=== PATIENT | female | born 2000 | race Caucasian/White ===

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

== ENCOUNTER 2022-05-01 07:32 | Emergency (ER) | payer OTHER, SELFPAY ==
[2022-05-01 07:45] VITALS: BP 125/86; PULSE 91; RESP 16; TEMP 36.6; O2SAT 99; BMI 22.3
[2022-05-01 08:02] VITALS: BP 125/86; PULSE 80; O2SAT 91
[2022-05-01 08:10] LABS: Microscopic, Urine URINE MICROSCOPIC (MICROSCOPIC)
[2022-05-01 08:15] VITALS: BP 109/62; PULSE 83; PULSE 87; RESP 16; O2SAT 100; O2SAT 99
[2022-05-01 08:17] LABS: Appearance,Urine CLEAR (Clear); Bilirubin,Urine Negative (Negative); Blood, Urine TRACE-I (Negative); Color,Urine YELLOW (Yellow); Glucose,Urine (UA) Negative (Negative); Ketones,Urine Negative (Negative); Leukocyte Esterase,Urine Negative (Negative); Nitrate,Urine Negative (Negative); PH,Urine 5.5 (5.0-8.5); Protein,Urine Negative (Negative); Specific Gravity, Urine 1.025 (1.005-1.030); Urobilinogen,Urine 0.2 EU/dl (0.2)
--- NOTE | 2022-05-01 08:24 | HMH.EDGENADL ---
Discharge Plan Disposition Patient Disposition: Home, Self-Care Condition: Good Prescriptions Prescriptions: No Action Nexplanon 68 mg implant 68 mg subdermal . Referrals Follow up/Referrals: Avel Matthews MD [Primary Care Provider] - See instructions Activity Restrictions/Add. Instructions Additional Instructions/Restrictions: Innv-[id number] ibuprofen 600 mg every 6-8 hours for pain. Follow-up with primary care provider, Dr. Matthews and with [employer], Dr. Cherry. Clinical Impressions Clinical Impression: Arthralgia, Back pain, Arm pain, left Stand Alone Forms Stand Alone Forms: Work/School Release Discharge ED Provider: Vamshi Street General Adult HPI General Chief complaint: Weakness Stated complaint: back pain, hip pain, body aches Time Seen by Provider: 05/01/22 08:15 Mode of Arrival: Ambulatory Source of Information: Patient and Relative Limitations: No Limitations Description of Symptoms (Recalled from ER Triage Doc. by RN): pt comes in with c/o body aches, muscle aches ongoing for 3 weeks. the past few days pt has had pain in left arm that extends from forarm to shoulder, back and hip. pt has nexplanon implant in left arm. placed dec 24 2021. pt has appt with obgyn (dr cherry) on 05/13/22. History of Present Illness HPI narrative: Patient has a 3-week history of body aches. She states that initially she was having pain in all of her muscles in all of her joints, but now she has pain in her mid back, both hips, and left arm. 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 Certain positions make her pain is worse. She says she is not able to sit for very long. Back pain increases with bending, twisting, turning, and she says when she takes it deep breath it sends a pain down my spine . No injury. No treatment prior to arrival. No fever. No vomiting, diarrhea, urinary symptoms. No URI symptoms. Her Nexplanon was inserted 12/24/[address] Cherry and she has a follow-up appointment on 05/13/2022. Related Data Home Medications Medication Instructions Recorded Confirmed etonogestrel 68 mg subdermal 68 mg subdermal . control 12/24/21 05/01/22 implant (Nexplanon) Allergies Allergy/AdvReac Type Severity Reaction Status Date / Time Penicillins [PENICILLINS] Allergy Unknown Verified 05/01/22 07:51 [facility] Disclaimer: The information contained in this section may have been updated after the patient was seen, as this information can be updated by other users. Medical History Headache Sleeping difficulties Social History Smoking Status: Current every day smoker alcohol intake: never substance use type: denies use current occupational status: unemployed Travel in the last 8 weeks: None household members: significant other housing: house ROS Obtained: Yes Systems reviewed as appropriate & no additional complaints except as documented Constitutional Constitutional: Reports body ache, Denies fever(s), Denies headache(s) and Denies weakness ENT Ears, Nose, Mouth, and Throat: Denies headache(s), Denies nasal discharge and Denies sore throat Cardiovascular Cardiovascular: Denies chest pain Respiratory Respiratory: Denies shortness of breath and Denies cough Gastrointestinal Gastrointestingal: Denies abdominal pain, constipation, diarrhea or vomiting Genitourinary Female Genitourinary: Denies difficulty voiding, Denies dysuria and Denies flank pain Musculoskeletal Musculoskeletal: Denies numbness Neurologic Neurologic: Denies headache(s), Denies numbness and Denies weakness Physical Exam General General appearance: alert and in no apparent distress Head Head exam: atraumatic and normocephalic Eye Eye exam: Present normal appearance and EOMI ENT ENT exam: Present mucous membranes moist N
[2022-05-01 08:26] LABS: Basophils # 0.1 K/mm3 (0-0.2); Eosinophils # 0.3 K/mm3 (0.0-0.4); Eosinophils % 4.2 % (0.1-12.0); Hematocrit 33.1 % (37.0-47.0); Lymphocytes # 2.1 K/mm3 (0.7-4.5); Lymphocytes % 35.1 % (10-50); Mean Corpuscular HGB Conc 33.3 g/dL (31.8-35.4); Mean Corpuscular Hemoglobin 26.6 pg (27.0-31.2); Mean Corpuscular Volume 79.6 fl (81-99); Mean Platelet Volume 7.6 fl (7.4-10.4); Monocytes # 0.4 K/mm3 (0.1-1.0); Monocytes % 5.9 % (1.7-9.3); Neutrophils # 3.2 K/mm3 (1.8-7.8); Neutrophils % 53.9 % (37.0-80.0); Platelet Count 420 K/mm3 (142-424); Red Blood Count 4.16 M/mm3 (4.20-5.40); Red Cell Distribution Width 17.3 % (11.5-17.5); White Blood Count 5.9 K/mm3 (4.5-13.0)
[2022-05-01 08:27] LABS: Chloride 107 mmol/L (98-107)
[2022-05-01 08:28] LABS: Sodium 139 mmol/L (136-145)
[2022-05-01 08:28] LABS: Bacteria,Urine Trace /lpf; RBC,Urine Occasional #/hpf (0-3); Urine Pregnancy, HCG Qual. Negative (Negative)
[2022-05-01 08:30] VITALS: BP 117/70; O2SAT 98
[2022-05-01 08:30] LABS: Alanine Aminotransferase 19 U/L (12-78); Aspartate Amino Transferase 22 U/L (14-36); Blood Urea Nitrogen 13 mg/dl (7-17); Creatinine Clearance Estimated 105 mL/min (50-200); Estimated Glomerular Filt Rate 92 ml/min (>60); GFR (African American) 112 ML/MIN (>60)
[2022-05-01 08:31] LABS: Albumin Level 4.2 g/dl (3.5-5.0); Albumin/Globulin Ratio 1.4 (1.1-1.8); Alkaline Phosphatase 60 U/L (38-126); Bilirubin,Total 0.7 mg/dl (0.2-1.3); Calcium 8.6 mg/dl (8.4-10.2); Carbon Dioxide 25 mmol/L (22.0-30.0); Globulin 3.1 g/dL (1.3-3.2); Glucose 103 mg/dl (74-100); Total Protein,Serum 7.3 g/dl (6.3-8.2)
[2022-05-01 08:36] LABS: Creatine Kinase 115 U/L (30-135)
[2022-05-01 08:42] LABS: C-Reactive Protein 1.6 mg/L (0-4)
[2022-05-01 08:55] LABS: Erythrocyte Sedimentation Rate 20 mm/hr (0-20)
--- NOTE | 2022-05-01 08:55 | PC.NURSE ---
got pt a warm blanket
[2022-05-01 08:57] VITALS: BP 121/86; PULSE 73; O2SAT 100
[2022-05-01 09:00] VITALS: BP 121/86; PULSE 75; RESP 16; TEMP 36.7
== END 2022-05-01 09:05 | disposition home or self-care (01) ==
PROVIDERS: Emergency Provider Emergency Medicine; PCP Internal Medicine Adolescent Medicine
DX: M79.602 Pain in left arm (principal); M79.642 Pain in left hand; M54.6 Pain in thoracic spine; F17.210 Nicotine dependence, cigarettes, uncomplicated
CPT/HCPCS: 80053; 81001; 81025; 82550; 85025; 85651; 86140; 96374; 99285

== ENCOUNTER → 2022-09-02 12:31 | Outpatient (CLI) | payer OTHER, SELFPAY ==
[2022-09-02 13:56] LABS: HCG,Quantitative 1687 mIU/ml (0-5.42)
== END ==
PROVIDERS: PCP Internal Medicine Adolescent Medicine; Visit Provider Obstetrics & Gynecology
DX: Z34.90 Encounter for supervision of normal pregnancy, unspecified, unspecified trimester (principal); Z3A.01 Less than 8 weeks gestation of pregnancy
CPT/HCPCS: 36415; 84144; 84702

== ENCOUNTER → 2022-10-03 11:52 | Outpatient (CLI) | payer OTHER, SELFPAY ==
[2022-10-03 12:27] LABS: Basophils % 0.2 % (0.1-2.0); Eosinophils # 0.2 K/mm3 (0.0-0.4); Eosinophils % 2.6 % (0.1-12.0); Hematocrit 35.3 % (37.0-47.0); Hemoglobin 11.5 g/dL (12.2-16.2); Lymphocytes # 1.8 K/mm3 (0.7-4.5); Lymphocytes % 30.8 % (10-50); Mean Corpuscular HGB Conc 32.5 g/dL (31.8-35.4); Mean Corpuscular Hemoglobin 27.9 pg (27.0-31.2); Mean Corpuscular Volume 85.8 fl (81-99); Mean Platelet Volume 7.4 fl (7.4-10.4); Monocytes # 0.3 K/mm3 (0.1-1.0); Monocytes % 5.8 % (1.7-9.3); Neutrophils # 3.5 K/mm3 (1.8-7.8); Neutrophils % 60.7 % (37.0-80.0); Platelet Count 360 K/mm3 (142-424); Red Blood Count 4.12 M/mm3 (4.20-5.40); Red Cell Distribution Width 15.4 % (11.5-17.5); White Blood Count 5.7 K/mm3 (4.5-13.0)
[2022-10-04 10:35] LABS: Rapid Plasma Reagin Ab Titer Non Reactive (NonRea<1:1); Rubella Antibodies, IgG 1.59 index (Immune >0.99)
[2022-10-05 22:14] LABS: Neisseria gonorrhoeae, NAA Negative (Negative)
[2022-11-02 23:34] LABS: HIV Screen 4th Generation wRfx Non Reactive; Hepatitis B Surface Antigen Negative; Hepatitis C Antibody Non Reactive
== END ==
PROVIDERS: PCP Internal Medicine Adolescent Medicine; Visit Provider Obstetrics & Gynecology
DX: Z34.91 Encounter for supervision of normal pregnancy, unspecified, first trimester (principal); Z3A.09 9 weeks gestation of pregnancy
CPT/HCPCS: 36415; 85025; 86593; 86703; 86762; 86850; 87086; 87340; 87380; 87491; 87591; G0432

== ENCOUNTER 2022-10-07 17:42 | Emergency (ER) | payer OTHER, SELFPAY ==
[2022-10-07] VITALS (7 sets, daily range): BP systolic 117–134; BP diastolic 70–83; PULSE 80–95; RESP 16; TEMP 36.7; O2SAT 99–100; BMI 23.1
--- NOTE | 2022-10-07 19:03 | HMH.EDGENADL ---
Discharge Plan Disposition Patient Disposition: Home, Self-Care Condition: Good Prescriptions Prescriptions: No Action Gummies 400 mcg-35 mg- 25 mg-5 mg tablet,chewable PO Referrals Follow up/Referrals: Avel Matthews MD [Primary Care Provider] - See instructions Clinical Impressions Clinical Impression: Migraine Discharge ED Provider: Logan Angel General Adult HPI General Chief complaint: Headache Stated complaint: HERNÁNDEZ, earache, cramps-10 wks preg Time Seen by Provider: 10/07/22 18:00 Mode of Arrival: Ambulatory Limitations: No Limitations Description of Symptoms (Recalled from ER Triage Doc. by RN): PT C/O MIGRAINE X 1 WEEK, LEFT EAR PAIN X 3 DAYS AND LEFT JAW PAIN. PT IS 9 6/7 WEEKS GESTATION WITH C/O LOWER ABDOMINAL CRAMPING THAT STARTED THIS AM. DENIES VAGINAL BLEEDING OR LEAKING OF FLUID History of Present Illness HPI narrative: Is a 22-year-old female who is currently 9 weeks presenting with headache. Patient states that headache started about 1 week prior to arrival. Is similar to her migraine symptoms, but more intense. Is moderate in intensity, does not radiate, left-sided. Not associated with neurologic deficits. Has not taken any medications to try to help given that she is . Denies any head trauma, or any other symptoms at this time. Related Data Home Medications Medication Instructions Recorded Confirmed PNV 153-FA 400 mcg-om3 35 mg-dha tab PO 10/03/22 10/03/22 25 mg-epa 5 mg-fish oil chew tablet ( Gummies) Allergies Allergy/AdvReac Type Severity Reaction Status Date / Time Penicillins [PENICILLINS] Allergy Unknown Verified 10/03/22 11:08 [facility] Disclaimer: The information contained in this section may have been updated after the patient was seen, as this information can be updated by other users. Medical History (Updated 10/07/22 @ 19:06 by Logan Angel MD) Headache History of delivery Sleeping difficulties Surgical History Hx of tonsillectomy Hx of wisdom tooth extraction Family History Other Alcoholism Anemia Asthma Coronary artery disease Diabetes FHx: mental illness Heart attack Hypertension Kidney disease Substance abuse Social History (Updated 10/07/22 @ 17:57 by Aaliyah Castillo RN) Smoking Status: Current every day smoker alcohol intake: never substance use type: denies use current occupational status: unemployed Travel in the last 8 weeks: None household members: significant other housing: house ROS Obtained: Yes All systems reviewed & no additional complaints except as documented Physical Exam General General appearance: alert and in no apparent distress Head Head exam: atraumatic, normocephalic and normal inspection Eye Eye exam: Present normal appearance, PERRL and EOMI ENT ENT exam: Present normal exam, normal oropharynx, mucous membranes moist, TM's normal bilaterally and normal external ear exam Neck Neck exam: Present normal inspection, full ROM and trachea midline; Absent meningismus or lymphadenopathy Chest Chest inspection: Present normal inspection and symmetric chest wall rise; Absent tenderness Respiratory Respiratory exam: Present normal lung sounds bilaterally; Absent respiratory distress Cardiovascular Cardiovascular exam: Present regular rate and normal rhythm; Absent JVD Abdominal Exam Abdominal exam: Present soft and normal bowel sounds; Absent distention, tenderness or guarding Extremities Exam Extremities exam: Present normal inspection, full ROM and normal capillary refill; Absent calf tenderness Back Exam Back exam: Present normal inspection; Absent tenderness Neurological Exam Neurological exam: Present alert and oriented X3 Psychiatric Psychiatric exam: Present normal affect and normal mood Skin Skin exam: Present warm, d
--- NOTE | 2022-10-07 19:04 | PC.NURSE ---
PT STATES SHE FEELING BETTER NEEDS TO BE HOME BY 19:15 SO HER COULD GO WORK AND SHE HAD NO ONE TO WATCH HER KIDS , RELAYED MESSAGE TO ER MD LARSEN
== END 2022-10-07 19:10 | disposition home or self-care (01) ==
PROVIDERS: Emergency Provider Emergency Medicine; PCP Internal Medicine Adolescent Medicine
DX: O26.891 Other specified pregnancy related conditions, first trimester (principal); G43.909 Migraine, unspecified, not intractable, without status migrainosus; Z3A.10 10 weeks gestation of pregnancy; O99.331 Smoking (tobacco) complicating pregnancy, first trimester; F17.210 Nicotine dependence, cigarettes, uncomplicated
CPT/HCPCS: 96361; 96374; 99284

== ENCOUNTER 2022-11-06 13:36 | Emergency (ER) | payer OTHER, SELFPAY ==
[2022-11-06 13:55] VITALS: BP 126/81; PULSE 82; RESP 18; TEMP 36.8; O2SAT 98; BMI 21.9
--- NOTE | 2022-11-06 14:33 | EXP.UTC ---
Discharge Plan Disposition Patient Disposition: Home, Self-Care Condition: Good Prescriptions Prescriptions: New cephalexin 500 mg capsule 500 mg PO Q8H 7 Days Qty: 21 0RF No Action Gummies 400 mcg-35 mg- 25 mg-5 mg tablet,chewable PO Referrals Follow up/Referrals: Avel Matthews MD [Primary Care Provider] - See instructions Activity Restrictions/Add. Instructions Additional Instructions/Restrictions: Use dental balls as prescribed Take medication as prescribed Follow up with Dentist call office tomorrow for appointment Return if needed Straight to ER if any life threatening symptoms Clinical Impressions Clinical Impression: Dental infection Instructions Patient Instructions: Tooth Abscess Discharge ED Provider: Michelle Smith [facility] General Stated complaint: Tooth pain Mode of Arrival: Ambulatory Source of Information: Patient and Parent(s) Limitations: No Limitations Time Seen by Provider: 11/06/22 14:33 Description of Symptoms (Recalled from Triage Doc. by RN): PATIENT C/O TOOTHACHE TO TOP LEFT SIDE X 4 DAYS HEENT Symptoms (Recalled from RN notes): Yes Resp Symptoms (Recalled from RN notes): No Skin Symptoms (Recalled from RN notes): No MS Symptoms (Recalled from RN notes): No Functional Status (Recalled from RN notes): WNL History of Present Illness Provider Complaint: Patient states that she has a broken tooth on her left upper back tooth States that for the last 4 days she has been having swelling and pain in her left jaw area and has tried several over the counter things to help with the dental pain but nothing has helped States that she is 12wks OB Related Data Home Medications Medication Instructions Recorded Confirmed PNV 153-FA 400 mcg-om3 35 mg-dha tab PO 10/03/22 10/24/22 25 mg-epa 5 mg-fish oil chew tablet ( Gummies) Previous Rx's Medication Instructions Recorded cephalexin 500 mg capsule 500 mg PO Q8H 7 days #21 caps 11/06/22 Allergies Allergy/AdvReac Type Severity Reaction Status Date / Time Penicillins [PENICILLINS] Allergy Unknown Verified 10/24/22 15:34 Worker's Comp Is this a Worker's Comp case?: No [facility] Disclaimer: The information contained in this section may have been updated after the patient was seen, as this information can be updated by other users. Medical History Headache History of delivery 35 weeks x 2 Sleeping difficulties Surgical History Hx of tonsillectomy Hx of wisdom tooth extraction Family History Other Alcoholism Anemia Asthma Coronary artery disease Diabetes FHx: mental illness Heart attack Hypertension Kidney disease Substance abuse Social History Smoking Status: Current every day smoker alcohol intake: never substance use type: denies use current occupational status: unemployed Travel in the last 8 weeks: None household members: significant other housing: house ROS Obtained: Yes All systems reviewed & no additional complaints except as documented and Yes Systems reviewed as appropriate & no additional complaints except as documented ENT Ears, Nose, Mouth, and Throat: Reports system reviewed and no additional complaints, except as documented, Reports as per HPI and Reports dental pain Cardiovascular Cardiovascular: Reports system reviewed and no additional complaints, except as documented and Reports as per HPI Respiratory Respiratory: Reports system reviewed and no additional complaints, except as documented and Reports as per HPI Gastrointestinal Gastrointestingal: Reports system reviewed and no additional complaints, except as documented and as per HPI Musculoskeletal Musculoskeletal: Reports system reviewed and no additional complain
[2022-11-06 14:46] VITALS: BP 126/81; PULSE 82; RESP 18; TEMP 36.8; O2SAT 98
== END 2022-11-06 14:48 | disposition home or self-care (01) ==
PROVIDERS: Emergency Provider Nurse Practitioner; PCP Internal Medicine Adolescent Medicine
DX: O26.891 Other specified pregnancy related conditions, first trimester (principal); K04.7 Periapical abscess without sinus; Z3A.12 12 weeks gestation of pregnancy; F17.210 Nicotine dependence, cigarettes, uncomplicated; O99.331 Smoking (tobacco) complicating pregnancy, first trimester
CPT/HCPCS: 99212; 99214; G0463

== ENCOUNTER 2022-11-27 13:26 | Emergency (ER) | payer OTHER, SELFPAY ==
--- NOTE | 2022-11-27 13:36 | EXP.UTC ---
Discharge Plan Disposition Patient Disposition: Home, Self-Care Condition: Good Prescriptions Prescriptions: New cephalexin 500 mg capsule 500 mg PO QID Qty: 40 0RF No Action Gummies 400 mcg-35 mg- 25 mg-5 mg tablet,chewable PO acetaminophen-codeine 300-30 mg tablet 1 tab PO Q6H PRN (Reason: pain) Qty: 14 0RF cephalexin 500 mg capsule 500 mg PO Q8H 7 Days Qty: 21 0RF Referrals Follow up/Referrals: Avel Matthews MD [Primary Care Provider] - See instructions Activity Restrictions/Add. Instructions Additional Instructions/Restrictions: Continue the tylenol #3 that were prescribed by your dentist. Take the cephalexin as directed. Follow up with your regular doctor. Follow up with your dentist. Call them in the morning to let them know what's going on with you. GO TO THE ER FOR ANY WORSENING SYMPTOMS Clinical Impressions Clinical Impression: Pain, dental Instructions Patient Instructions: DI for Dental Pain Discharge ED Provider: Manuel Daniel [facility] General Stated complaint: DENTAL PAIN Time Seen by Provider: 11/27/22 13:36 History of Present Illness Provider Complaint: She states that she has is having right dental pain. She had a tooth pulled in her right lower jaw 3 days ago. She is taking tylenol #3 and she states this is not relieving her pain. Related Data Home Medications Medication Instructions Recorded Confirmed PNV 153-FA 400 mcg-om3 35 mg-dha tab PO 10/03/22 10/24/22 25 mg-epa 5 mg-fish oil chew tablet ( Gummies) Previous Rx's Medication Instructions Recorded cephalexin 500 mg capsule 500 mg PO Q8H 7 days #21 caps 11/06/22 acetaminophen 300 mg-codeine 30 mg 1 tab PO Q6H PRN pain #14 tabs 11/07/22 tablet cephalexin 500 mg capsule 500 mg PO QID #40 caps 11/27/22 Allergies Allergy/AdvReac Type Severity Reaction Status Date / Time Penicillins [PENICILLINS] Allergy Unknown Verified 10/24/22 15:34 [facility] Disclaimer: The information contained in this section may have been updated after the patient was seen, as this information can be updated by other users. Medical History Headache History of delivery 35 weeks x 2 Sleeping difficulties Surgical History Hx of tonsillectomy Hx of wisdom tooth extraction Family History Other Alcoholism Anemia Asthma Coronary artery disease Diabetes FHx: mental illness Heart attack Hypertension Kidney disease Substance abuse Social History Smoking Status: Current every day smoker alcohol intake: never substance use type: denies use current occupational status: unemployed Travel in the last 8 weeks: None household members: significant other housing: house ROS Obtained: Yes All systems reviewed & no additional complaints except as documented Constitutional Constitutional: Denies chills and Denies fever(s) Eyes Eyes: Denies eye discharge ENT Ears, Nose, Mouth, and Throat: Reports as per HPI, Denies dizziness, Denies otalgia and Denies sore throat Cardiovascular Cardiovascular: Denies chest pain Respiratory Respiratory: Denies shortness of breath, Denies chest congestion, Denies cough, Denies stridor and Denies wheezing Gastrointestinal Gastrointestingal: Denies nausea or vomiting Musculoskeletal Musculoskeletal: Reports system reviewed and no additional complaints, except as documented and Denies arthralgias Integumentary/Breasts Skin/Breast: Denies rash Neurologic Neurologic: Denies dizziness and Denies paresthesias Allergic/Immunologic Allergic/Immunologic: Denies wheezing Physical Exam General General appearance: alert and in no apparent distress Head Head exam: atraumatic, normocephalic and normal inspection
[2022-11-27 13:40] VITALS: BP 130/81; PULSE 89; RESP 20; TEMP 36.9; O2SAT 99; BMI 23.1
[2022-11-27 14:05] VITALS: BP 130/81; PULSE 89; RESP 20; TEMP 36.9; O2SAT 99
== END 2022-11-27 14:07 | disposition home or self-care (01) ==
PROVIDERS: Emergency Provider Nurse Practitioner Family; PCP Internal Medicine Adolescent Medicine
DX: K08.89 Other specified disorders of teeth and supporting structures (principal); F17.210 Nicotine dependence, cigarettes, uncomplicated
CPT/HCPCS: 99212; 99214; G0463

== ENCOUNTER → 2022-12-16 13:03 | Outpatient (CLI) | payer OTHER, SELFPAY ==
--- NOTE | 2022-12-16 13:06 | US_ITS ---
PROCEDURE: US OB /MATERNAL DETAIL CLINICAL INDICATION: OB complete COMPARISON: FINDINGS: Transabdominal sonographic images of the pelvis were obtained. From her established due date she is 20 weeks 0 days. Single viable intrauterine gestation. Cephalic position. Placenta: Posteriorplacenta grade 1. There is average amount fluid. The cervix appears satisfactory. Closed and measuring 2.6 cm in length. Complete survey performed and was unremarkable on the submitted images as in PACS. No discrete anomalies identified on survey imaging by technologist. Active fetus. Three-vessel cord with satisfactory umbilical cord insertion. 4- chamber heart noted. LVOT, RVOT, aortic arch, aorta appear normal. Survey of brain & ventricles Unremarkable. Choroid plexus, thalamus, cisterna magna, cerebellum appear normal. Face and neck survey unremarkable. Profile, nasion, lips and nose appeared normal. Diaphragm and chest views unremarkable. Abdomen: Both kidneys noted and unremarkable. Stomach, bladder noted and satisfactory. Spine: Survey of the spine satisfactory with no anomalies identified nor imaged. Upper, thoracic and lower spine appear normal. Both arms and legs noted. Amniotic Fluid: Adequate. Measurements: Average ultrasound age 20weeks 1day. Estimated due date by ultrasound age 0105/04/2023. Estimated weight 323g BPD = 20weeks 5days OFD = 20weeks 4days HC = 19weeks 6days AC = 20weeks 0 days FL = 20weeks 0 days Growth Percentile= 42 Heart Rate = 133bpm Cerebellum = 19weeks 2days Humerus = 20weeks 1day HC/AC is 1.18 CI is 0.8 FL/BPD is 0.66 FL/AC is 0.22 IMPRESSION: 1. Viable fetus in the cephalic presentation with a posterior placenta grade 1. 2. Fluid is within normal limits. 3. The anatomical scan appears normal. 4. Size and dates are congruent. Dictated by: Fredis Nelson MD 12/20/2022 08:00 Fredis Nelson MD in OV 12/20/2022 08:00
== END ==
PROVIDERS: PCP Internal Medicine Adolescent Medicine; Visit Provider Nurse Practitioner Obstetrics & Gynecology
DX: Z34.92 Encounter for supervision of normal pregnancy, unspecified, second trimester (principal); Z3A.20 20 weeks gestation of pregnancy
CPT/HCPCS: 76811

== ENCOUNTER 2023-03-11 18:03 | Inpatient (IN) | payer OTHER, SELFPAY ==
[2023-03-11] VITALS (11 sets, daily range): BP systolic 111–144; BP diastolic 60–85; PULSE 99–113; RESP 16–18; TEMP 36.6–36.8; O2SAT 98–100; BMI 26.1; BMI 24.9
[2023-03-11 16:41] LABS: Microscopic, Urine URINE MICROSCOPIC (MICROSCOPIC)
[2023-03-11 16:51] LABS: Appearance,Urine CLEAR (Clear); Bilirubin,Urine Negative (Negative); Blood, Urine Negative (Negative); Color,Urine YELLOW (Yellow); Glucose,Urine (UA) Negative (Negative); Ketones,Urine Negative (Negative); Leukocyte Esterase,Urine 2+ (Negative); Nitrate,Urine Negative (Negative); Protein,Urine Negative (Negative); Urobilinogen,Urine 0.2 EU/dl (0.2)
[2023-03-11 17:01] LABS: Barbiturates Screen,Urine Negative ng/ml (<200); Benzodiazepines Screen,Urine Negative ng/ml (<200)
[2023-03-11 17:02] LABS: Amphetamine/Metha Screen,Urine Negative ng/ml (<1000)
[2023-03-11 17:03] LABS: Bacteria,Urine 1+ /lpf; Cannabinoid Screen,Urine Negative ng/ml (<50); Methadone Screen,Urine Negative ng/ml (<300); Squamous Epithelial Cell,Urine Occasional #/hpf (0-5)
[2023-03-11 17:04] LABS: Cocaine Screen,Urine Negative ng/ml (<300)
[2023-03-11 17:05] LABS: Opiate Screen,Urine Negative ng/ml (<300); Phencyclidine Screen,Urine Negative ng/ml (<25)
--- NOTE | 2023-03-11 17:39 | PC.NURSE ---
Active Medications Lactated Ringer's (Lactated Ringer's 1000 Ml Bag) 1,000 mls @ 999 mls/hr IV .Q1H1M ONE Stop: 03/11/23 18:00 Last Admin: 03/11/23 16:51 Dose: 999 mls/hr Magnesium Sulfate (Magnesium Sulfate 20gm/500ml Premix (Ob Only)) 20 gm in 500 mls @ 50 mls/hr IV .Q10H LUCI Stop: 04/10/23 16:59 Last Admin: 03/11/23 16:52 Dose: 50 mls/hr
--- NOTE | 2023-03-11 17:51 | EXP.HP ---
History of Present Illness *Admission Date: 03/11/23 *Reason for visit:: vaginal pressure *History of present illness: Sahra Matias is a 22yo who is presenting at 32weeks and 1day gestation. There is a discrepancy with her DARÍO. Patient reported an LMP of 08/03/2022 giving her an DARÍO of 05/10/2023. This was reported at 9 weeks gestation. However when I discussed this with the patient today patient states she is unsure of her LMP. If we used her LMP for dating it would give her a gestational age of 31 weeks and 3 days gestation. She had an early ultrasound at 9 weeks and 3 days which gave her an DARÍO of 05/05/2023 giving her a current gestational age of 32 weeks and 1 day gestation. Since the patient is unsure of her last menstrual period we will stick with her Gestational age and DARÍO of 32 weeks 1 day gestation and 05/05/2023 respectively. She receives her care with Dr. Nelson. She has had 3 prior vaginal deliveries. Her has been complicated by 2 previous vaginal deliveries which she delivered at 35 weeks gestation. was also complicated by scant care. She has had 3 visits at 9, 12 and 19 weeks gestation. She denies any history of -induced hypertension or gestational diabetes. Patient reports the only medication she takes is a vitamin. Denies any past medical or surgical history. Reports an allergy to penicillin states that it causes hives. She had her anatomy scan at 20 weeks gestation which revealed a cervical length of 2.6 cm, EFW of 323 g in the 42nd percentile, anatomy was complete. Today Sahra presents secondary to vaginal pain and pressure for the last week and scant contractions for the last 3 to 4 days. Patient reports that the contractions happen 4-5 times in a day and typically at night. They are resolved with increased hydration. States that she knew she was supposed to get steroids given her history of early delivery and that she had missed his OB appointments and wanted to get steroids and just be checked out. Patient desires a bilateral salpingectomy for contraception. OB history: G1: 2018. at 38 weeks gestation. 7 pounds 1 ounce. Male infant. Complicated by hemorrhage G2: 2019. SAB. Expectant management. G3: 2019. SAB. Expectant management. G4: 2021. at 35 weeks gestation. 6 pounds. Male . G5: 2021. at 35 weeks gestation. 5 pounds 4 ounces. Female infant. G6: Current . NIPT revealed a low risk male A positive, antibody negative, rubella immune, hepatitis B negative, hepatitis C negative, RPR negative, HIV negative Patient did not have her 1 hour GTT done Denies history of GBS. [facility] Disclaimer: The information contained in this section may have been updated after the patient was seen, as this information can be updated by other users. Medical History Headache History of delivery 35 weeks x 2 Sleeping difficulties Surgical History Hx of tonsillectomy Hx of wisdom tooth extraction Family History Other Alcoholism Anemia Asthma Coronary artery disease Diabetes FHx: mental illness Heart attack Hypertension Kidney disease Substance abuse Social History Smoking Status: Current every day smoker alcohol intake: never substance use type: denies use current occupational status: unemployed Travel in the last 8 weeks: None household members: significant other housing: house Review of Systems Review of Systems Review of systems (narrative): Review of Systems Constitutional: Denies fever, chills, and sweats Eyes: Denies vision change/ pain Respiratory: Denies cough and shortness of breath Cardiovascular: Denies chest pain and lightheadedness Gastroi
--- NOTE | 2023-03-11 18:20 | US_ITS ---
PROCEDURE INFORMATION: Exam: US , Transvaginal Exam date and time: 03/11/2023 8:15 PM Age: 22 years old Clinical indication: Other: labor; LABS AND CLINICAL REPORTS: Gestational age (Established): 32 w 1 d Estimated due date (Established): 05/05/2023 TECHNIQUE: Imaging protocol: Real-time transvaginal obstetrical ultrasound of the maternal pelvis with image documentation. Transvaginal imaging was used for better evaluation of the fetus, adnexa, and/or cervix. COMPARISON: US OB /MATERNAL DETAIL 12/16/2022 1:08 PM FINDINGS: Gestation: Intrauterine gestation. BIOMETRY: Gestational age (AUA): 32 w 2 d Estimated due date (AUA): 05/04/2023 MATERNAL: Cervix: Cervix measures 3.2-3.7 cm. It is closed . With Valsalva it decreases to 1.86 cm. IMPRESSION: Cervix measures 3.2-3.7 cm. It is closed . With Valsalva it decreases to 1.86 cm. PROCEDURE INFORMATION: Exam: US Biophysical Profile Without Non-Stress Test Exam date and time: 03/11/2023 8:15 PM Age: 22 years old Clinical indication: Other: labor; TECHNIQUE: Imaging protocol: US biophysical profile without non-stress testing. COMPARISON: US OB /MATERNAL DETAIL 12/16/2022 1:08 PM FINDINGS: heart rate: 127 bpm Amniotic fluid index: MARY GRACE is 8.85 cm. Cephalic presentation Normal stomach Normal kidneys Normal four-chamber heart Three-vessel cord BIOPHYSICAL PROFILE: breathing movement (BPP): 2/2 body movement (BPP): 2/2 tone (BPP): :2/2 Amniotic fluid (BPP): :2/2 Biophysical profile score (BPP): 8/8 IMPRESSION: The biophysical profile is 8/8. Two points each for breathing movement; gross body movement; tone; and qualitative amniotic fluid volume
[2023-03-11 21:21] LABS: Magnesium 4.5 mg/dl (1.6-2.3)
[2023-03-12 00:48] VITALS: BP 112/70; PULSE 103; RESP 18; TEMP 36.8; O2SAT 100
[2023-03-12 01:48] VITALS: BP 117/70; PULSE 99; RESP 17; TEMP 36.8; O2SAT 100
[2023-03-12 02:01] VITALS: BP 110/72; PULSE 95; RESP 17; TEMP 36.8; O2SAT 100
--- NOTE | 2023-03-12 02:46 | EXP.DC.SUM ---
General Admission date:: 03/11/23 Discharge date: 03/12/23 HPI HPI HPI: Sahra Matias is a 22yo who is presenting at 32weeks and 1day gestation. There is a discrepancy with her DARÍO. Patient reported an LMP of 08/03/2022 giving her an DARÍO of 05/10/2023. This was reported at 9 weeks gestation. However when I discussed this with the patient today patient states she is unsure of her LMP. If we used her LMP for dating it would give her a gestational age of 31 weeks and 3 days gestation. She had an early ultrasound at 9 weeks and 3 days which gave her an DARÍO of 05/05/2023 giving her a current gestational age of 32 weeks and 1 day gestation. Since the patient is unsure of her last menstrual period we will stick with her Gestational age and DARÍO of 32 weeks 1 day gestation and 05/05/2023 respectively. She receives her care with Dr. Nelson. She has had 3 prior vaginal deliveries. Her has been complicated by 2 previous vaginal deliveries which she delivered at 35 weeks gestation. was also complicated by scant care. She has had 3 visits at 9, 12 and 19 weeks gestation. She denies any history of -induced hypertension or gestational diabetes. Patient reports the only medication she takes is a vitamin. Denies any past medical or surgical history. Reports an allergy to penicillin states that it causes hives. She had her anatomy scan at 20 weeks gestation which revealed a cervical length of 2.6 cm, EFW of 323 g in the 42nd percentile, anatomy was complete. Today Sahra presents secondary to vaginal pain and pressure for the last week and scant contractions for the last 3 to 4 days. Patient reports that the contractions happen 4-5 times in a day and typically at night. They are resolved with increased hydration. States that she knew she was supposed to get steroids given her history of early delivery and that she had missed his OB appointments and wanted to get steroids and just be checked out. Patient desires a bilateral salpingectomy for contraception. OB history: G1: 2018. at 38 weeks gestation. 7 pounds 1 ounce. Male infant. Complicated by hemorrhage G2: 2019. SAB. Expectant management. G3: 2019. SAB. Expectant management. G4: 2020. at 35 weeks gestation. 6 pounds. Male infant. G5: 2021. at 35 weeks gestation. 5 pounds 4 ounces. Female infant. G6: Current . NIPT revealed a low risk male A positive, antibody negative, rubella immune, hepatitis B negative, hepatitis C negative, RPR negative, HIV negative Patient did not have her 1 hour GTT done Denies history of GBS. Hospital Course Hospital Course Hospital Course: Following admission US was obtained at that point her cervix was 3.02 to 3.32cm without funneling, shortening was noted with valsalva. Fetus is cephalic. Estimated weight is 1988 g, 4 pounds 3 ounces, 31st percentile. BPP was 8 out of 8. Of note, on admission anatomy scan was reviewed and cervical length at that time was noted to be 2.6cm in length. Estimated weight 20-week anatomy scan was 323 g, 42nd percentile. Posterior grade 1 placenta. Anatomy scan was complete at that time. After shared decision making we elected to start her on magnesium for neuroprotection and tocolysis for steroid completion as described in the HPI. The first 9 hours she slept and did not feel any contractions at 2am she reported back pain and lower abdominal pain. She had a contraction while the nurse was in the room and her tocometer was adjusted. Contractions were noted q2-4minutes. At this time her cervix was noted to be 3-4cm and I was called for exam. I confirmed the exam and called for transport given her gestational age. Exam Data for Last 24 hours Vital signs and Labs for Last 24 Hours: Temp Pulse Resp BP Pulse Ox O2 Del Method 98.3 F 95 H 17 110/72 100 Room Air 03/12/23 02:01 03/12/23 02:01 03/12/23 02:0
== END 2023-03-12 03:39 | disposition short-term general hospital (02) | DRG 833 ==
LOC: OBOUT 18:04 → OB 18:04
PROVIDERS: Admitting Provider Obstetrics & Gynecology; PCP Internal Medicine Adolescent Medicine; Visit Provider Obstetrics & Gynecology
DX: O60.03 Preterm labor without delivery, third trimester (principal); Z3A.32 32 weeks gestation of pregnancy; O09.899 Supervision of other high risk pregnancies, unspecified trimester; F17.200 Nicotine dependence, unspecified, uncomplicated
CPT/HCPCS: 36415; 59025; 76816; 76817; 76819; 80305; 81001; 83735; 86403; 87086; J2405

== ENCOUNTER 2023-03-17 03:52 | Outpatient (CLI) | payer OTHER, SELFPAY ==
[2023-03-17 03:57] VITALS: BP 118/73; PULSE 101; RESP 20; TEMP 37.2; O2SAT 95; BMI 24.9
[2023-03-17 04:15] LABS: Microscopic, Urine URINE MICROSCOPIC (MICROSCOPIC)
[2023-03-17 04:17] LABS: Appearance,Urine CLEAR (Clear); Bilirubin,Urine Negative (Negative); Blood, Urine Negative (Negative); Color,Urine YELLOW (Yellow); Glucose,Urine (UA) Negative (Negative); Ketones,Urine Negative (Negative); Leukocyte Esterase,Urine Negative (Negative); Nitrate,Urine Negative (Negative); PH,Urine 6.5 (5.0-8.5); Protein,Urine Negative (Negative); Specific Gravity, Urine <= 1.005 (1.005-1.030); Urobilinogen,Urine 0.2 EU/dl (0.2)
[2023-03-17 04:22] VITALS: BP 118/73; PULSE 101; RESP 20; TEMP 37.2; O2SAT 95; BMI 24.9
[2023-03-17 04:28] LABS: Amphetamine/Metha Screen,Urine Negative ng/ml (<1000); Benzodiazepines Screen,Urine Negative ng/ml (<200); Squamous Epithelial Cell,Urine Occasional #/hpf (0-5)
[2023-03-17 04:28] LABS: Fetal Membrane Rupture (Rapid) Negative (Negative)
[2023-03-17 04:29] LABS: Barbiturates Screen,Urine Negative ng/ml (<200)
[2023-03-17 04:30] LABS: Cannabinoid Screen,Urine Negative ng/ml (<50); Methadone Screen,Urine Negative ng/ml (<300)
[2023-03-17 04:31] LABS: Cocaine Screen,Urine Negative ng/ml (<300); Opiate Screen,Urine Negative ng/ml (<300)
[2023-03-17 04:32] LABS: Phencyclidine Screen,Urine Negative ng/ml (<25)
== END 2023-03-17 04:45 | disposition home or self-care (01) ==
LOC: OBOUT 03:53 → OB 03:54
PROVIDERS: PCP Internal Medicine Adolescent Medicine; Visit Provider Obstetrics & Gynecology
DX: O26.893 Other specified pregnancy related conditions, third trimester (principal); Z3A.33 33 weeks gestation of pregnancy
CPT/HCPCS: 59025; 80305; 81001; 84112; G0463

== ENCOUNTER 2023-03-27 21:07 | Outpatient (CLI) | payer OTHER, SELFPAY ==
[2023-03-27 21:10] VITALS: BMI 27.8
[2023-03-27 21:20] VITALS: BP 115/77; PULSE 105; RESP 19; TEMP 37.1; O2SAT 99; BMI 27.8
[2023-03-27 21:26] LABS: Microscopic, Urine URINE MICROSCOPIC (MICROSCOPIC)
[2023-03-27 21:30] LABS: Appearance,Urine CLEAR (Clear); Bilirubin,Urine Negative (Negative); Blood, Urine Negative (Negative); Color,Urine YELLOW (Yellow); Glucose,Urine (UA) Negative (Negative); Ketones,Urine Negative (Negative); Leukocyte Esterase,Urine Negative (Negative); Nitrate,Urine Negative (Negative); Protein,Urine Negative (Negative); Specific Gravity, Urine 1.015 (1.005-1.030)
[2023-03-27 21:45] LABS: Amphetamine/Metha Screen,Urine Negative ng/ml (<1000)
[2023-03-27 21:46] LABS: Barbiturates Screen,Urine Negative ng/ml (<200)
[2023-03-27 21:47] LABS: Benzodiazepines Screen,Urine Negative ng/ml (<200); Cannabinoid Screen,Urine Negative ng/ml (<50)
[2023-03-27 21:48] LABS: Cocaine Screen,Urine Negative ng/ml (<300)
[2023-03-27 21:49] LABS: Methadone Screen,Urine Negative ng/ml (<300); Opiate Screen,Urine Negative ng/ml (<300)
[2023-03-27 21:50] LABS: Phencyclidine Screen,Urine Negative ng/ml (<25)
[2023-03-27 22:37] LABS: Squamous Epithelial Cell,Urine Occasional #/hpf (0-5)
== END 2023-03-27 22:16 | disposition home or self-care (01) ==
LOC: OBOUT 21:09 → OB 21:09
PROVIDERS: PCP Internal Medicine Adolescent Medicine; Visit Provider Obstetrics & Gynecology
DX: O26.853 Spotting complicating pregnancy, third trimester (principal); Z3A.34 34 weeks gestation of pregnancy
CPT/HCPCS: 59025; 80305; 81001; G0463

== ENCOUNTER 2023-04-01 19:17 | Outpatient (CLI) | payer OTHER, SELFPAY ==
[2023-04-01 19:23] VITALS: BMI 27.8
[2023-04-01 19:43] LABS: Microscopic, Urine URINE MICROSCOPIC (MICROSCOPIC)
[2023-04-01 19:46] LABS: Appearance,Urine SL CLOUDY (Clear); Bilirubin,Urine 1+ (Negative); Blood, Urine Negative (Negative); Color,Urine YELLOW (Yellow); Glucose,Urine (UA) Negative (Negative); Ketones,Urine TRACE (Negative); Leukocyte Esterase,Urine TRACE (Negative); Nitrate,Urine Negative (Negative); Protein,Urine TRACE (Negative); Specific Gravity, Urine >= 1.030 (1.005-1.030); Urobilinogen,Urine 0.2 EU/dl (0.2)
[2023-04-01 19:56] LABS: Barbiturates Screen,Urine Negative ng/ml (<200)
[2023-04-01 19:57] LABS: Benzodiazepines Screen,Urine Negative ng/ml (<200)
[2023-04-01 19:58] LABS: Amphetamine/Metha Screen,Urine Negative ng/ml (<1000); Methadone Screen,Urine Negative ng/ml (<300)
[2023-04-01 19:59] LABS: Cannabinoid Screen,Urine Negative ng/ml (<50)
[2023-04-01 20:00] LABS: Cocaine Screen,Urine Negative ng/ml (<300); Opiate Screen,Urine Negative ng/ml (<300)
[2023-04-01 20:01] LABS: Phencyclidine Screen,Urine Negative ng/ml (<25)
[2023-04-01 20:06] LABS: RBC,Urine Occasional #/hpf (0-3); WBC,Urine Occasional #/hpf (0-3)
[2023-04-01 20:39] VITALS: BP 114/70; PULSE 117; RESP 17; TEMP 37.2; O2SAT 98; BMI 27.8
== END 2023-04-01 22:36 | disposition home or self-care (01) ==
LOC: OBOUT 19:20 → OB 19:20
PROVIDERS: PCP Internal Medicine Adolescent Medicine; Visit Provider Obstetrics & Gynecology
DX: Z34.90 Encounter for supervision of normal pregnancy, unspecified, unspecified trimester (principal)
CPT/HCPCS: 59025; 80305; 81001; 96365; G0463

== ENCOUNTER 2023-04-03 18:56 | Inpatient (IN) | payer OTHER, SELFPAY ==
[2023-04-03 19:04] VITALS: BMI 27.8
[2023-04-03 19:49] LABS: Microscopic, Urine URINE MICROSCOPIC (MICROSCOPIC)
[2023-04-03 19:53] LABS: Basophils % 0.1 % (0.1-2.0); Eosinophils # 0.1 K/mm3 (0.0-0.4); Eosinophils % 1.1 % (0.1-12.0); Hematocrit 28.5 % (37.0-47.0); Hemoglobin 9.7 g/dL (12.2-16.2); Lymphocytes # 1.4 K/mm3 (0.7-4.5); Mean Corpuscular HGB Conc 34.1 g/dL (31.8-35.4); Mean Corpuscular Hemoglobin 30.2 pg (27.0-31.2); Mean Corpuscular Volume 88.6 fl (81-99); Mean Platelet Volume 6.8 fl (7.4-10.4); Monocytes # 0.4 K/mm3 (0.1-1.0); Monocytes % 3.5 % (1.7-9.3); Neutrophils # 8.5 K/mm3 (1.8-7.8); Neutrophils % 82.3 % (37.0-80.0); Platelet Count 302 K/mm3 (142-424); Red Blood Count 3.22 M/mm3 (4.20-5.40); White Blood Count 10.3 K/mm3 (4.5-13.0)
[2023-04-03 19:55] LABS: Appearance,Urine CLEAR (Clear); Bilirubin,Urine Negative (Negative); Blood, Urine Negative (Negative); Color,Urine YELLOW (Yellow); Glucose,Urine (UA) Negative (Negative); Ketones,Urine Negative (Negative); Leukocyte Esterase,Urine 1+ (Negative); Nitrate,Urine Negative (Negative); Protein,Urine Negative (Negative); Specific Gravity, Urine 1.015 (1.005-1.030); Urobilinogen,Urine 0.2 EU/dl (0.2)
[2023-04-03 20:10] LABS: Barbiturates Screen,Urine Negative ng/ml (<200); Benzodiazepines Screen,Urine Negative ng/ml (<200)
[2023-04-03 20:11] LABS: Amphetamine/Metha Screen,Urine Negative ng/ml (<1000)
[2023-04-03 20:12] LABS: Cocaine Screen,Urine Negative ng/ml (<300); Methadone Screen,Urine Negative ng/ml (<300)
[2023-04-03 20:13] LABS: Cannabinoid Screen,Urine Negative ng/ml (<50)
[2023-04-03 20:14] LABS: Opiate Screen,Urine Negative ng/ml (<300)
[2023-04-03 20:15] LABS: Phencyclidine Screen,Urine Negative ng/ml (<25)
--- NOTE | 2023-04-03 20:29 | EXP.OB.APHP ---
OB - H&P: HPI Antepartum History of Present Illness Chief complaint: Painful uterine contractions History of present illness: Ms Sahra Matias is a 22 yo [id number] at 35w3d who presents to [facility] Labor and Delivery with complaint of painful uterine contractions that started around 0600 this morning. She states contractions increased in intensity and frequency. Upon arrival to L&D SVE was 5/80/-2 and she was zo every 2 minutes. GBS unknown. History of celestone at 32 weeks. History of Present Criteria for establishing EDC:: based on 1st trimester US only care: limited care Ultrasounds: normal mid trimester US Obstetrical complications: labor Medical complications: none Labs Blood type: A (+) positive Rubella: immune RPR/VDRL: nonreactive GBS status: unknown HBsAG: negative [facility] Disclaimer: The information contained in this section may have been updated after the patient was seen, as this information can be updated by other users. Medical History (Updated 04/03/23 @ 20:57 by Ivonne Angel DO) 35 weeks gestation of Arthralgia Cystitis Dental infection Headache History of delivery Menstrual migraine Pain, dental labor Sleeping difficulties Surgical History Hx of tonsillectomy Hx of wisdom tooth extraction Family History Other Alcoholism Anemia Asthma Coronary artery disease Diabetes FHx: mental illness Heart attack Hypertension Kidney disease Substance abuse Social History Smoking Status: Current every day smoker tobacco type: e-cigarettes alcohol intake: never substance use type: denies use current occupational status: unemployed Travel in the last 8 weeks: None household members: significant other and children housing: house marital status: single do you feel safe at home: Yes victim of physical abuse: No victim of emotional abuse: No victim of sexual abuse: No Review of Systems Review of Systems Review of systems:: pertinent systems reviewed and negative unless documented below *Genitourinary Comments: + contractions, pelvic pressure Meds Home Medications and Allergies Home Medications Medication Instructions Recorded Confirmed Type PNV 153-FA 400 mcg-om3 35 mg-dha 1 tab PO DAILY 06/19/23 12/18/23 History 25 mg-epa 5 mg-fish oil chew tablet ( Gummies) New Prescriptions to Start Prescriptions: Allergies Allergy/AdvReac Type Severity Reaction Status Date / Time Penicillins [PENICILLINS] Allergy Unknown Verified 03/27/23 13:14 OB - H&P: Exam Constitutional mild distress and cooperative Routine HEENT Exam Head: Present normocephalic and atraumatic Eye: Absent conjunctivae pink ENT: Present mucous membranes moist Routine Neck Exam Present full ROM Routine Respiratory Exam Present CTA bilaterally and normal respiratory effort Routine Cardiovascular Exam Present RRR Routine Abdominal Exam Present soft (Gravid); Absent tenderness Routine Rectal Exam Patient deferred: visual exam Routine Exam External: Present normal urethra appearance; Absent tenderness, lesions, lacerations, vulvar erythema or vulvar tenderness Routine Extremities Exam Present full ROM; Absent edema or calf tenderness Routine Neurological Exam Present alert, oriented X3 and moving all extremities Routine Psychiatric Exam Present normal affect and cooperative Detailed Labor and Delivery Exam Dilation (cm): 5 Effacement (%): 80 Cervix position: mid station: -2 Consistency: soft Membranes: intact Baseline heart rate: 130 monitor accelerations: Present monitor decelerations: None penitentiary variability: Moderate (11-25) Contraction frequency (min): 2 OB - Results Labs Labs: Short CBC 04/03/23 Rang
--- NOTE | 2023-04-03 22:12 | P.PNANES_ITS ---
[facility] Disclaimer: The information contained in this section may have been updated after the patient was seen, as this information can be updated by other users. Medical History (Updated 04/03/23 @ 20:57 by Ivonne Angel DO) 35 weeks gestation of Arthralgia Cystitis Dental infection Headache History of delivery Menstrual migraine Pain, dental labor Sleeping difficulties Surgical History Hx of tonsillectomy Hx of wisdom tooth extraction Family History Other Alcoholism Anemia Asthma Coronary artery disease Diabetes FHx: mental illness Heart attack Hypertension Kidney disease Substance abuse Social History Smoking Status: Current every day smoker tobacco type: e-cigarettes alcohol intake: never substance use type: denies use current occupational status: unemployed Travel in the last 8 weeks: None household members: significant other and children housing: house marital status: single do you feel safe at home: Yes victim of physical abuse: No victim of emotional abuse: No victim of sexual abuse: No [facility] Anesthesia Checklist Patient Identification Patient Identification: Arm Band, Family and Verbal (Name & ) Structural Data Admitted From: Inpatient (OB 277) Planned Operative Procedure/s: Labor epidural Consent for Planned Operative Procedure(s) Verified: Yes Verified Documents: Surgical Consent and History and Physical NPO Status Verified Time NPO: 15:00 Chart Verification Results Verified: CBC and BMP Additional verifications Patient : Yes Anesthesia Reactions: No Hx Blood Transfusions: No Blood Transfusion Reaction: No Cardiovascular Assessment Heart Sounds: S1 & S2 Pulse Rhythm: Irregular Peripheral Edema: Yes (2+ FLAKITO LE) Airway Assessment Mallampati Score:: Class II C-Spine Mobility Assessed: Yes (FROM) TMJ Mobility Assessed: Yes Dentition: Good Dentition (Nothing loose per pt.) Neurological Assessment Level of Consciousness: Awake, Alert, Appropriate and Follows Commands Hx Seizures: No Numbness or tingling in extremities: No Anesthesia Plan Anesthesia Risk discussed: Yes Anesthesia Plan: Verified ASA Class: II Anesthesia Type: Epidural
[2023-04-04] VITALS (11 sets, daily range): BP systolic 90–131; BP diastolic 56–85; PULSE 61–86; RESP 14–17; TEMP 36.6–37.2; O2SAT 97–100
--- NOTE | 2023-04-04 01:24 | EXP.DN ---
Delivery Note Delivery Date:: 04/04/23 Delivery Time:: 01:07 Anesthesia Type: Epidural Was labor medically induced?: No Gestational age (weeks): 35 Infant delivered prior to 39 weeks?: Yes Justification for early elective delivery:: Active Labor Infant Gender: Male at 1 minute: 8 at 5 minutes: 9 Delivery Procedure:: Mom complete with epidural. Pushed for approximately one contraction. Head delivered spontaneously over intact perineum in TOBIAS position. Nuchal cord x 1 easily reduced. Anterior shoulder delivered spontaneously. Posterior shoulder and remainder of body delivered spontaneously. Baby placed on maternal abdomen, mouth and nares bulb suctioned, warmed/dried and stimulated. Delayed cord clamping was performed for 60 seconds. Cord was clamped and cut by father of baby. Cord blood was obtained. Placenta delivered spontaneously and intact. Bilateral labial abrasions and small 1st degree perineal laceration was hemostatic. Mom and baby were skin to skin and doing well after delivery. Live male baby (baby's name is Vj) APGARs 8 (1 min), 9 (5 min) EBL 300 mL Placental Delivery Description: Spontaneous
[2023-04-04 06:01] LABS: Hematocrit 27.8 % (37.0-47.0); Hemoglobin 9.6 g/dL (12.2-16.2)
--- NOTE | 2023-04-04 10:12 | SW/DCPLANNER ---
Addendum entered by Adelaida Alford 04/11/23 09:18: Infant cord screen is negative. Original Note: I received a consult on this patient regarding PCS4. Per OB nursing staff (Zaira) patient also had limited care: total of five visits. Patient delivered male (Anthony Hodgson) today 04/04/2023. 's father (Obdulio Haynes 01/02/31) was present at the time of my visit. Patient, Obdulio, eyad and three other children (Juan Carlos Watt 04/15/18, Selwyn Hodgson 01/13/21 and Jun Hodgson 12/02/21) will reside at [address] [place] [address] in [place] [address]. Patient stated that she has not had any past Social Service involvement w/ other children. Patient's contact number is [phone]. Patient is not interested in HANDS and not currently established w/ WIC but stated she will sign up. Patient has the following items at home: crib, carseat, clothing, diapers and will be breast feeding. Patient stated that PED MD will be Dr Lee and she will have transportation to all follow up appointments. Patient stated that she did not have limited care. Per OB nursing staff patient is planned to discharge home 04/06/23 pending no setbacks.
--- NOTE | 2023-04-04 11:19 | PC.NURSE ---
Addendum entered by Maral Conklin RN 04/04/23 13:02: Administered by Inna Miller RN Original Note: 1 unit of emergent release PRBCs issued on this patient for hemorrhage, unit number [id number] Start time: 0207 Stop time: 034
--- NOTE | 2023-04-04 12:22 | EXP.ACUTE.PN ---
Subjective *Date: 04/04/23 *Time: 12:22 Interval history: PPD # 0 s/p with hemorrhage Resting comfortably in bed. Pain controlled. Lochia appropriate. Pumping and bottle feeding. After delivery last night QBL > 600 mL. She felt dizzy and lightheaded as well as nauseous. Directly after delivery EBL was 300 mL. She received TXA and methergine with improvement in bleeding. However, bleeding continued with passage of clots. She was transfused 1 unit PRBCs secondary to symptomatic acute blood loss anemia with hemorrhage. She admits she feels better this morning but still feels a little dizzy. She is voiding without difficulty and passing flatus. Tolerating regular diet. Denies fever/chills, chest pain or shortness of breath. No headaches or vision changes. Medical Exam Vital signs and Labs for Last 24 Hours: Vital Signs Temp Pulse Resp BP Pulse Ox O2 Del Method 04/04/23 04:45 99.0 F 80 15 113/60 97 Room Air 04/04/23 03:45 98.0 F 83 15 112/56 L 97 Room Air 04/04/23 03:07 98.1 F 77 14 108/59 L 99 Room Air 04/04/23 02:52 98.2 F 68 14 105/63 L 99 Room Air 04/04/23 02:37 98.0 F 62 14 106/65 L 100 Room Air 04/04/23 02:22 98.0 F 61 15 108/62 L 100 Non-Rebreather 04/04/23 02:17 97.9 F 67 15 131/71 100 Non-Rebreather 04/04/23 02:12 98.1 F 71 15 115/85 100 Non-Rebreather 04/04/23 02:07 98.1 F 86 15 90/70 L 100 Non-Rebreather 04/04/23 02:04 98.1 F 85 14 94/71 L 99 Non-Rebreather Intake and Output 04/03/23 04/04/23 04/04/23 23:59 07:59 15:59 Other: Weight 162 lb Laboratory Results - last 24 hr 04/03/23 19:05: WBC 10.3, RBC 3.22 L, Hgb 9.7 L, Hct 28.5 L, MCV 88.6, MCH 30.2, MCHC 34.1, RDW 17.0, Plt Count 302, MPV 6.8 L, Neut % (Auto) 82.3 H, Lymph % (Auto) 13.0, [place] % (Auto) 3.5, Eos % (Auto) 1.1, Baso % (Auto) 0.1, Neut # (Auto) 8.5 H, Lymph # (Auto) 1.4, [place] # (Auto) 0.4, Eos # (Auto) 0.1, Baso # (Auto) 0.0, Urine Color Yellow, Urine Appearance Clear, Urine pH 7.0, Ur Specific [place] 1.015, Urine Protein Negative, Urine Glucose (UA) Negative, Urine Ketones Negative, Urine Blood Negative, Urine Nitrate Negative, Urine Bilirubin Negative, Urine Urobilinogen 0.2, Ur Leukocyte Esterase 1+ A, Urine RBC None, Urine WBC 3-5, Ur Squamous Epith Cells 3-5, Urine Bacteria None, Urine Opiates Screen Negative, Urine Methadone Screen Negative, Ur Barbituates Screen Negative, Ur Phencyclidine Scrn Negative, Ur Amphetamines Screen Negative, U Benzodiazepines Scrn Negative, Urine Cocaine Screen Negative, U Marijuana (THC) Screen Negative, Blood Type A Positive, Antibody Screen Negative, Crossmatch (AHG) See Detail 04/04/23 05:22: Hgb 9.6 L, Hct 27.8 L I & O for Labs for Last 24 Hours: Intake & Output 04/01/23 04/02/23 04/03/23 04/04/23 23:59 23:59 23:59 23:59 Weight 162 lb Head: Present atraumatic and normocephalic ENT: Present mucous membranes moist Neck: Present full ROM Respiratory: Present CTA bilaterally and normal respiratory effort Cardiac: Present Reg Rate and Rhythm GI: Present soft; Absent distention or tenderness Rectal (female): Present deferred (female): Present deferred Extremities: Present normal inspection and full ROM; Absent edema Neuro: Present alert, awake, oriented x 3 and moves all extremities Assessment and Plan *Assessment and plan (1) spontaneous labor with delivery: Status: Acute Category: Medical Code(s): O60.10X0 - labor with delivery, unspecified trimester, not applicable or unspecified (2) hemorrhage: Status: Acute Category: Medical Code(s): O72.1 - Other immediate hemorrhage (3) Acute blood loss anemia: Status: Acute Category: Medical Code(s): D62 - Acute posthemorrhagic anemia (4) Anemia affecting : Status: Acute Category: Medical Code(s): O99.019 - Anemia complicating , u
[2023-04-05 04:34] VITALS: BP 104/68; PULSE 77; RESP 17; TEMP 36.6
[2023-04-05 05:46] LABS: Basophils % 0.2 % (0.1-2.0); Eosinophils # 0.2 K/mm3 (0.0-0.4); Eosinophils % 3.1 % (0.1-12.0); Hemoglobin 9.3 g/dL (12.2-16.2); Lymphocytes # 1.9 K/mm3 (0.7-4.5); Lymphocytes % 27.3 % (10-50); Mean Corpuscular HGB Conc 34.3 g/dL (31.8-35.4); Mean Corpuscular Hemoglobin 30.3 pg (27.0-31.2); Mean Corpuscular Volume 88.1 fl (81-99); Mean Platelet Volume 6.9 fl (7.4-10.4); Monocytes # 0.4 K/mm3 (0.1-1.0); Monocytes % 5.8 % (1.7-9.3); Neutrophils # 4.5 K/mm3 (1.8-7.8); Neutrophils % 63.6 % (37.0-80.0); Platelet Count 271 K/mm3 (142-424); Red Blood Count 3.06 M/mm3 (4.20-5.40); Red Cell Distribution Width 17.1 % (11.5-17.5)
--- NOTE | 2023-04-05 13:16 | EXP.DC.SUM ---
General Admission date:: 04/03/23 Discharge date: 04/05/23 HPI HPI HPI: PPD # 1 s/p She is feeling well. Pain controlled. Pumping and bottle feeding. Voiding without difficulty and passing flatus. Tolerating regular diet. Denies fever/chills, chest pain and shortness of breath. No headaches, vision changes, lightheadedness/dizziness. No lower extremity edema. Ambulating well ad trini. Hospital Course Hospital Course Hospital Course: Ms Sahra Matias is a 22 yo [id number] at 35w3d admitted to [facility] Labor and Delivery for labore. She reported painful uterine contractions started around 0600 on 04/04/23 and increased in frequency and intensity. Upon arrival to L&D SVE was 5/80/-2 and she was zo every 2 minutes. GBS unknown. History of celestone at 32 weeks. She had a normal spontaneous vaginal delivery on 04/04/23 at 0107. She delivered a live male baby, Zabala, weighing 6 lb 2 oz. AGPARs 8 (1 min), 9 (5 min). EBL 300. she received TXA and methergine with improvement in bleeding. However, bleeding continued with passage of clots. She was transfused 1 unit PRBCs secondary to symptomatic acute blood loss anemia with hemorrhage 680 after delivery. Hgb/Hct on admission 9.7/28.5. PPD # 1 Hgb/Hct 9.3/27.0. She did well . Pain controlled. Pumping and bottle feeding. Voiding without difficulty and passing flatus. Tolerating regular diet. Denies fever/chills, chest pain and shortness of breath. No headaches, vision changes, lightheadedness/dizziness. No lower extremity edema. Ambulating well ad trini. Vital signs stable, afebrile. Heart regular rate and rhythm. Lungs clear to auscultation. Abdomen soft, nontender. No lower extremity edema. Normal hospital course. She requested Depo Provera for contraception prior to discharge. She was discharged to home but staying as a guest secondary to baby is . Exam Data for Last 24 hours Vital signs and Labs for Last 24 Hours: Temp Pulse Resp BP Pulse Ox O2 Del Method 97.8 F 77 17 104/68 L 99 Room Air 04/05/23 04:34 04/05/23 04:34 04/05/23 04:34 04/05/23 04:34 04/04/23 20:25 04/04/23 20:25 Laboratory Results - last 24 hr 04/05/23 05:20: WBC 7.0 D, RBC 3.06 L, Hgb 9.3 L, Hct 27.0 L, MCV 88.1, MCH 30.3, MCHC 34.3, RDW 17.1, Plt Count 271, MPV 6.9 L, Neut % (Auto) 63.6, Lymph % (Auto) 27.3, [place] % (Auto) 5.8, Eos % (Auto) 3.1, Baso % (Auto) 0.2, Neut # (Auto) 4.5, Lymph # (Auto) 1.9, [place] # (Auto) 0.4, Eos # (Auto) 0.2, Baso # (Auto) 0.0 I & O for Last 24 hours: Intake & Output 04/02/23 04/03/23 04/04/23 04/05/23 23:59 23:59 23:59 23:59 Weight 162 lb Constitutional Constitutional: no acute distress and cooperative *Routine HEENT Exam Head: Present normocephalic and atraumatic Eye: Absent conjunctivae pink ENT: Present mucous membranes moist *Routine Neck Exam Neck: Present full ROM *Routine Respiratory Exam Respiratory: Present CTA bilaterally and normal respiratory effort *Routine Cardiovascular Exam Cardiovascular: Present RRR *Routine Abdominal Exam Abdominal: Present soft; Absent tenderness or distended Comments: Uterine fundus firm and below umbilicus *Routine Rectal Exam Patient deferred: visual exam *Routine Exam Patient deferred: external exam *Routine Extremities Exam Extremities: Present full ROM; Absent edema or calf tenderness *Routine Neurological Exam Neurological: Present alert, oriented X3 and moving all extremities Routine Psychiatric Exam Psychiatric: Present normal affect and cooperative Results Data Completed and Pending Labs on day of discharge: Labs from last 24 hours 04/05/23 05:20 WBC 7.0 D RBC 3.06 L Hgb 9.3 L Hct 27.0 L MCV 88.1 MCH 30.3 MCHC 34.3 RDW 17.1 Plt Count 271 MPV 6.9 L Neut % (Auto) 63.6 Lymph % (Auto) 27.3 [place] % (Auto) 5.8 Eos % (Auto) 3.1 Baso % (Auto) 0.2 Neut # (Auto) 4.5 Lymph # (Auto) 1.9 [facility] # (Auto) 0.4 Eos # (Auto) 0.2 Baso # (Auto) 0.0
== END 2023-04-05 14:30 | disposition home or self-care (01) | DRG 806 ==
LOC: OBOUT 18:56 → OB 18:57
PROVIDERS: Admitting Provider Obstetrics & Gynecology; PCP Internal Medicine Adolescent Medicine; Visit Provider Obstetrics & Gynecology
DX: O69.81X0 Labor and delivery complicated by cord around neck, without compression, not applicable or unspecified (principal); D62 Acute posthemorrhagic anemia; Z37.0 Single live birth; O72.1 Other immediate postpartum hemorrhage; F17.290 Nicotine dependence, other tobacco product, uncomplicated; Z3A.35 35 weeks gestation of pregnancy; O90.81 Anemia of the puerperium
CPT/HCPCS: 59409; 36415; 59025; 80305; 81001; 85014; 85018; 85025; 86850; 87086; 94761; 96365; G0283; G0463; J1050; J1756; J2405; P9016

== ENCOUNTER 2023-08-10 14:59 | Outpatient (CLI) | payer OTHER, SELFPAY ==
[2023-08-10 15:14] LABS: Basophils % 0.8 % (0.1-2.0); Eosinophils # 0.4 K/mm3 (0.0-0.4); Eosinophils % 6.4 % (0.1-12.0); Lymphocytes # 1.5 K/mm3 (0.7-4.5); Lymphocytes % 26.6 % (10-50); Mean Corpuscular HGB Conc 33.3 g/dL (31.8-35.4); Mean Corpuscular Hemoglobin 29.3 pg (27.0-31.2); Mean Platelet Volume 7.2 fl (7.4-10.4); Monocytes # 0.3 K/mm3 (0.1-1.0); Monocytes % 5.6 % (1.7-9.3); Neutrophils # 3.4 K/mm3 (1.8-7.8); Neutrophils % 60.6 % (37.0-80.0); Platelet Count 380 K/mm3 (142-424); Red Blood Count 4.09 M/mm3 (4.20-5.40); Red Cell Distribution Width 13.8 % (11.5-17.5); White Blood Count 5.6 K/mm3 (4.8-10.8)
[2023-08-10 15:40] LABS: Alanine Aminotransferase 30 U/L (12-78); Albumin Level 4.1 g/dl (3.5-5.0); Albumin/Globulin Ratio 1.4 (1.1-1.8); Alkaline Phosphatase 78 U/L (38-126); Anion Gap 8.6 mEq/L (5-15); Aspartate Amino Transferase 28 U/L (14-36); Bilirubin,Total 1.2 mg/dl (0.2-1.3); Blood Urea Nitrogen 9 mg/dl (7-17); Calcium 9.1 mg/dl (8.4-10.2); Carbon Dioxide 29 mmol/L (22.0-30.0); Chloride 107 mmol/L (98-107); Estimated Glomerular Filt Rate 106 ml/min (>60); GFR (African American) 128 ML/MIN (>60); Glucose 107 mg/dl (74-100); Potassium 4.6 mmoL/L (3.5-5.1); Sodium 140 mmol/L (136-145); Total Protein,Serum 7.1 g/dl (6.3-8.2)
== END 2023-08-10 23:59 | disposition home or self-care (01) ==
LOC: LAB 14:59
PROVIDERS: PCP Internal Medicine Adolescent Medicine; Visit Provider Obstetrics & Gynecology
DX: N93.9 Abnormal uterine and vaginal bleeding, unspecified (principal)
CPT/HCPCS: 36415; 80053; 85025

== ENCOUNTER 2023-09-28 13:06 | Emergency (ER) | payer OTHER, SELFPAY ==
[2023-09-28 13:25] VITALS: BP 113/66; PULSE 69; RESP 20; TEMP 36.9; O2SAT 98; BMI 25.5
--- NOTE | 2023-09-28 13:57 | ED_ITS ---
Discharge Plan Disposition Patient Disposition: Home, Self-Care Condition: Good Prescriptions Prescriptions: New [id number]-lmslyjphu-OO [Bromfed DM] 2-30-10 mg/5 mL syrup 10 ml PO Q6H PRN (Reason: cold symptoms) Qty: 200 0RF methylprednisolone [Medrol (Anish)] 4 mg tablets,dose pack See Rx Instructions .ROUTE .COMPLEX 6 Days Qty: 21 0RF Rx Instructions: 4 mg orally ;Medrol dose taper anish azithromycin 250 mg tablet See Rx Instructions .ROUTE .COMPLEX Qty: 6 0RF Rx Instructions: For 250 mg dose pack: take 500 mg today (day 1), then 250 mg for 4 days (days 2-5) No Action medroxyprogesterone [Depo-Provera] 150 mg/mL suspension 150 mg IM [id number] Qty: 1 3RF Referrals Follow up/Referrals: Avel Matthews MD [Primary Care Provider] - See instructions Activity Restrictions/Add. Instructions Additional Instructions/Restrictions: If symptoms persist or worsen, follow up with PCP. Clinical Impressions Clinical Impression: Upper respiratory tract infection Qualifiers: URI type: unspecified URI Qualified Code(s): J06.9 - Acute upper respiratory infection, unspecified Instructions Patient Instructions: DI for Sinusitis Discharge ED Provider: Jyoti Nguyễn [facility] General Stated complaint: cough, congestion Mode of Arrival: Ambulatory Source of Information: Patient Limitations: No Limitations Time Seen by Provider: 09/28/23 13:56 Description of Symptoms (Recalled from Triage Doc. by RN): PATIENT C/O COUGH WITH GREEN SPUTUM, CONGESTION, HEADACHE, AND SINUS TENDERNESS X 1 WEEK HEENT Symptoms (Recalled from RN notes): Yes Resp Symptoms (Recalled from RN notes): Yes Skin Symptoms (Recalled from RN notes): No MS Symptoms (Recalled from RN notes): No Functional Status (Recalled from RN notes): WNL History of Present Illness Provider Complaint: Pt reports that she has felt bad for the last week with green sinus drainage, headache, sinus pressure/pain, cough and congestion. She denies taking anything for her symptoms. Family members are sick with similar symptoms. Related Data Previous Rx's Medication Instructions Recorded medroxyprogesterone 150 mg/mL 150 mg IM [id number] #1 mL 08/10/23 intramuscular suspension (Depo-Provera) azithromycin 250 mg tablet See Rx Instructions PO .COMPLEX #6 09/28/23 tabs mbaqzipzrbcnlqe-esxzluchsqbytpf-RR 10 ml PO Q6H PRN cold symptoms 09/28/23 2 mg-30 mg-10 mg/5 mL oral syrup #200 mL (Bromfed DM) methylprednisolone 4 mg tablets in See Rx Instructions .Route 09/28/23 a dose pack (Medrol (Anish)) .COMPLEX 6 days #21 tabs Allergies Allergy/AdvReac Type Severity Reaction Status Date / Time Penicillins [PENICILLINS] Allergy Unknown Verified 08/10/23 14:19 Worker's Comp Is this a Worker's Comp case?: No [facility] Disclaimer: The information contained in this section may have been updated after the patient was seen, as this information can be updated by other users. Medical History (Updated 09/28/23 @ 14:03 by Jyoti Nguyễn APRN) Anemia Anxiety Migraine spontaneous labor with delivery Acute blood loss anemia hemorrhage Pain, dental Dental infection History of delivery Menstrual migraine Arthralgia labor History of delivery 35 weeks gestation of Cystitis Sleeping difficulties Headache Surgical History Hx of wisdom tooth extraction Hx of tonsillectomy Family History Other Alcoholism Anemia Asthma Coronary artery disease Diabetes FHx: mental illness Heart attack Hypertension Kidney disease Substance abuse Social History Smoking Status: Current every day smoker tobacco type: e-cigarettes alcohol intake: never substance use type: denies use current occupational status: unemployed Travel in the last 8 weeks: None household members: significant other and children housing: house marital status: single do you feel safe at home: Yes victim of physical abuse: No victim of emotional abuse: No victim of sexual abuse: No ROS Obtained: Yes All systems reviewed & no additional complaints except as documented Constitutional Constitutional: Reports system reviewed and no additional complaints, except as documented, Reports headache(s) and Reports malaise Eyes Eyes: Reports system reviewed and no additional complaints, except as documented ENT Ears, Nose, Mouth, and Throat: Reports system reviewed and no additional complaints, except as documented, Reports facial pain, Reports headache(s), Reports nasal congestion, Reports nasal discharge, Reports sinus pain and Reports sinus pressure Cardiovascular Cardiovascular: Reports system reviewed and no additional complaints, except as documented Respiratory Respiratory: Reports system reviewed and no additional complaints, except as documented, Reports cough and Reports wheezing Gastrointestinal Gastrointestingal: Reports system reviewed and no additional complaints, except as documented Genitourinary Female Genitourinary: Reports system reviewed and no additional complaints, except as documented Musculoskeletal Musculoskeletal: Reports system reviewed and no additional complaints, except as documented Integumentary/Breasts Skin/Breast: Reports system reviewed and no additional complaints, except as documented Neurologic Neurologic: Reports system reviewed and no additional complaints, except as documented and Reports headache(s) Endocrine Endocrine: Reports system reviewed and no additional complaints, except as documented Hematologic/Lymphatic Henatologic/Lymphatic: Reports system reviewed and no additional complaints, except as documented Allergic/Immunologic Allergic/Immunologic: Reports system reviewed and no additional complaints, except as documented and Reports wheezing Physical Exam General General appearance: alert Comment: ill appearing Head Head exam: atraumatic and normocephalic Eye Eye exam: Present periorbital swelling (right ) Expanded ENT Exam External ear exam: Present normal external inspection Nose exam: Present sinus tenderness Nasal speculum exam: Bilateral: purulent discharge Mouth exam: Present normal external inspection Teeth exam: Present normal inspection Throat exam: Present normal inspection Neck Neck exam: Present normal inspection Chest Chest inspection: Present normal inspection and symmetric chest wall rise Respiratory Respiratory exam: Present wheezes Expanded Respiratory Exam Location: Left: wheezes and rhonchi, Right: rhonchi, Upper: wheezes and Lower: wheezes and rhonchi Cardiovascular Cardiovascular exam: Present regular rate, normal rhythm and normal heart sounds Abdominal Exam Abdominal exam: Present soft and normal bowel sounds Extremities Exam Extremities exam: Present normal inspection Back Exam Back exam: Present normal inspection Neurological Exam Neurological exam: Present alert and oriented X3 Psychiatric Psychiatric exam: Present normal affect and normal mood Skin Skin exam: Present warm, dry and intact Lymphatic Lymphatic Findings: no adenopathy Medical Decision Making Mehrdad Inquiry Pt receiving controlled substance: No Mehrdad was queried for this patient: No Vital Signs: 09/28/23 13:25 Temperature 98.5 F Temperature Source Oral Pulse Rate [Left Brachial] 69 Respiratory Rate 20 Blood Pressure [Left Arm] 113/66 Blood Pressure Mean [Left Arm] 81 Blood Pressure Source [Left Arm] Automatic Cuff Blood Pressure Position [Left Arm] Sitting 02 Sat by Pulse Oximetry 98 Oxygen Delivery Method Room Air
[2023-09-28 14:07] VITALS: BP 113/66; PULSE 69; RESP 20; TEMP 36.9; O2SAT 98
== END 2023-09-28 14:11 | disposition home or self-care (01) ==
PROVIDERS: Emergency Provider Nurse Practitioner Family; PCP Internal Medicine Adolescent Medicine
DX: R05.9 Cough, unspecified (principal); R51.9 Headache, unspecified; J06.9 Acute upper respiratory infection, unspecified; B34.9 Viral infection, unspecified; F17.290 Nicotine dependence, other tobacco product, uncomplicated
CPT/HCPCS: 99212; 99214; G0463

== ENCOUNTER 2023-11-20 15:15 | Emergency (ER) | payer OTHER, SELFPAY ==
[2023-11-20 15:17] VITALS: BP 119/80; PULSE 63; RESP 16; TEMP 36.8; O2SAT 97; BMI 25.5
--- NOTE | 2023-11-20 16:03 | PC.NURSE ---
Dr. Cherry at BS for patient eval
--- NOTE | 2023-11-20 16:08 | HMH.EDGENADL ---
Discharge Plan Disposition Patient Disposition: Home, Self-Care Prescriptions Prescriptions: No Action medroxyprogesterone [Depo-Provera] 150 mg/mL suspension 150 mg IM [id number] Qty: 1 3RF [id number]-mofsbgsag-SR [Bromfed DM] 2-30-10 mg/5 mL syrup 10 ml PO Q6H PRN (Reason: cold symptoms) Qty: 200 0RF methylprednisolone [Medrol (Anish)] 4 mg tablets,dose pack See Rx Instructions .ROUTE .COMPLEX 6 Days Qty: 21 0RF Rx Instructions: 4 mg orally ;Medrol dose taper anish azithromycin 250 mg tablet See Rx Instructions .ROUTE .COMPLEX Qty: 6 0RF Rx Instructions: For 250 mg dose pack: take 500 mg today (day 1), then 250 mg for 4 days (days 2-5) Referrals Follow up/Referrals: Avel Matthews MD [Primary Care Provider] - See instructions Activity Restrictions/Add. Instructions Additional Instructions/Restrictions: Symptoms are consistent with a median neuropathy and carpal tunnel syndrome on the left side. You do have some weakness with thumb opposition and you need to follow-up with a hand surgeon to discuss surgical intervention. In the meantime please wear your volar wrist splint at night and you may take ibuprofen as needed for any type of discomfort you are experiencing Clinical Impressions Clinical Impression: Carpal tunnel syndrome Print Language Print Language: Kenyan Discharge ED Provider: Shira Cherry General Adult HPI General Chief complaint: PAIN Stated complaint: Left arm messed up from control device Time Seen by Provider: 11/20/23 16:00 Mode of Arrival: Ambulatory Source of Information: Patient Limitations: No Limitations Description of Symptoms (Recalled from ER Triage Doc. by RN): pt to ER with complaints of intermitten left arm pain and middle finger swelling since the end of may. when she had her nexplanon removed. pt reports her pain a 5 at this time. no obvious signs of infection or post removal on left inner upper arm History of Present Illness HPI narrative: Patient is a 23-year-old female presenting today with left arm and hand discomfort. She has tingling and pain over the medial aspect of her left volar aspect of her forearm no swelling it is tingling from the middle aspect of her left upper extremity through the first second and third digits on the left hand and the volar aspect. She does have a job where she has repetitive movements of the left hand no redness swelling fevers chills or other concerns. Related Data Previous Rx's ?Medication ?Instructions ?Recorded medroxyprogesterone 150 mg/mL 150 mg IM [id number] #1 mL 08/10/23 intramuscular suspension (Depo-Provera) azithromycin 250 mg tablet See Rx Instructions PO .COMPLEX #6 09/28/23 tabs jsxllcqvoonqrgr-qtonylwkimvtbun-YF 10 ml PO Q6H PRN cold symptoms 09/28/23 2 mg-30 mg-10 mg/5 mL oral syrup #200 mL (Bromfed DM) methylprednisolone 4 mg tablets in See Rx Instructions .Route 09/28/23 a dose pack (Medrol (Anish)) .COMPLEX 6 days #21 tabs Allergies Allergy/AdvReac Type Severity Reaction Status Date / Time Penicillins [PENICILLINS] Allergy Unknown Verified 08/10/23 14:19 [facility] Disclaimer: The information contained in this section may have been updated after the patient was seen, as this information can be updated by other users. Medical History (Updated 11/20/23 @ 16:08 by Shira Cherry MD) Anemia Anxiety Migraine spontaneous labor with delivery Acute blood loss anemia hemorrhage Pain, dental Dental infection History of delivery Menstrual migraine Arthralgia labor History of delivery 35 weeks gestation of Cystitis Sleeping difficulties Headache Surgical History Hx of wisdom tooth extraction Hx of tonsillectomy Family History Other Alcoholism Anemia Asthma Coronary artery disease Diabetes FHx: mental illness Heart attack Hypertension Kidney disease Substance abuse Social History Smoking Status: Current every day smoker tobacco type: e-cigarettes alcohol intake: never substance use type: denies use current occupational status: unemployed Travel in the last 8 weeks: None household members: significant other and children housing: house marital status: single do you feel safe at home: Yes victim of physical abuse: No victim of emotional abuse: No victim of sexual abuse: No ROS Obtained: Yes All systems reviewed & no additional complaints except as documented Physical Exam General General appearance: alert Respiratory Respiratory exam: Present normal lung sounds bilaterally Cardiovascular Cardiovascular exam: Present regular rate Extremities Exam Extremities exam: Present other (Patient has thenar eminence atrophy as well as thumb opposition weakness and she has a positive Tinel's sign otherwise normal neurovascular exam) Neurological Exam Neurological exam: Present alert and oriented X3 Medical Decision Making Mehrdad Inquiry Pt receiving controlled substance: No Vital Signs: 11/20/23 15:17 Temperature 98.3 F Temperature Source Oral Pulse Rate [Left Radial] 63 Respiratory Rate 16 Blood Pressure [Right Arm] 119/80 Blood Pressure Mean [Right Arm] 93 Blood Pressure Source [Right Arm] Automatic Cuff Blood Pressure Position [Right Arm] Sitting 02 Sat by Pulse Oximetry 97 Oxygen Delivery Method Room Air Medical Decision Narrative: 23-year-old female presenting today with extremity discomfort. She has symptoms consistent with a median neuropathy and carpal tunnel syndrome. No other concern for neurovascular emergency. She has been advised to wear a volar wrist splint at night and to follow-up with hand surgery. Critical Care Critical Care Time Critical Care Time: No
--- NOTE | 2023-11-20 16:09 | PC.NURSE ---
Addendum entered by AMBER Land 11/20/23 16:10: Velcro brace was also placed on her arm Original Note: Pt was given a left velcro brace for her arm.
[2023-11-20 16:14] VITALS: BP 117/82; PULSE 66; RESP 18; TEMP 36.8
== END 2023-11-20 16:16 | disposition home or self-care (01) ==
PROVIDERS: Emergency Provider Student in an Organized Health Care Education/Training Program; PCP Internal Medicine Adolescent Medicine
DX: G56.00 Carpal tunnel syndrome, unspecified upper limb (principal); M79.602 Pain in left arm; M79.642 Pain in left hand
CPT/HCPCS: 99282

== ENCOUNTER 2023-11-27 11:00 | Emergency (ER) | payer OTHER, SELFPAY ==
[2023-11-27 11:35] VITALS: BP 108/72; PULSE 69; RESP 18; TEMP 36.6; O2SAT 97; BMI 25.7
--- NOTE | 2023-11-27 11:47 | XR_ITS ---
FINAL REPORT TECHNIQUE: Right clavicle 2 views CLINICAL HISTORY: PAIN, NKI COMPARISON: None FINDINGS: RIGHT CLAVICLE: 2 views of the right clavicle failed to reveal any evidence of fracture or dislocation. The glenohumeral joint appears unremarkable. IMPRESSION: No acute bony abnormality identified. Reviewed, Interpreted and Dictated by Rafiq Khan III, MD Transcribed by Wen Harris Authenticated and [facility]
--- NOTE | 2023-11-27 12:07 | EXP.UTC ---
Discharge Plan Disposition Patient Disposition: Home, Self-Care Condition: Good Prescriptions Prescriptions: No Action medroxyprogesterone [Depo-Provera] 150 mg/mL suspension 150 mg IM [id number] Qty: 1 3RF Referrals Follow up/Referrals: Hamilton Roach DO [Staff Physician] - See instructions Avel Matthews MD [Primary Care Provider] - See instructions Activity Restrictions/Add. Instructions Additional Instructions/Restrictions: Ice to the area may help with pain and discomfort Over the counter Motrin and/or Tylenol may help with pain and discomfort Follow up with your Family Doctor if no improvement or any worsening of symptoms Straight to ER if any life threatening symptoms Clinical Impressions Clinical Impression: Pain of right clavicle Stand Alone Forms Stand Alone Forms: Work/School Release Instructions Patient Instructions: How to Use a Sling, How To Perform RICE (Rest, Ice, Compress, Elevate) Print Language Print Language: Japanese Discharge ED Provider[place] Mc[place]helle [place] [facility] [place] General Stated complaint: R collarbone pain Mode of Arrival: Ambulatory Source of Information: Patient Limitations: No Limitations Time Seen by Provider: 11/27/23 12:07 Description of Symptoms (Recalled from Triage Doc. 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 and felt a sharp pain in her right clavicle area and has been having pain there since that is worse with movement Denies falling and denies any other injury Related Data Previous Rx's ?Medication ?Instructions ?Recorded medroxyprogesterone 150 mg/mL 150 mg IM [id number] #1 mL 08/10/23 intramuscular suspension (Depo-Provera) Allergies Allergy/AdvReac Type Severity Reaction Status Date / Time Penicillins [PENICILLINS] Allergy Unknown Verified 08/10/23 14:19 Worker's Comp Is this a Worker's Comp case?: No [facility] Disclaimer: The information contained in this section may have been updated after the patient was seen, as this information can be updated by other users. Medical History (Updated 11/27/23 @ 12:16 by Michelle Smith APRN) Anemia Anxiety Migraine spontaneous labor with delivery Acute blood loss anemia hemorrhage Pain, dental Dental infection History of delivery Menstrual migraine Arthralgia labor History of delivery 35 weeks gestation of Cystitis Sleeping difficulties Headache Surgical History Hx of wisdom tooth extraction Hx of tonsillectomy Family History Other Alcoholism Anemia Asthma Coronary artery disease Diabetes FHx: mental illness Heart attack Hypertension Kidney disease Substance abuse Social History Smoking Status: Current every day smoker tobacco type: e-cigarettes alcohol intake: never substance use type: denies use current occupational status: unemployed Travel in the last 8 weeks: None household members: significant other and children housing: house marital status: single do you feel safe at home: Yes victim of physical abuse: No victim of emotional abuse: No victim of sexual abuse: No ROS Obtained: Yes All systems reviewed & no additional complaints except as documented and Yes Systems reviewed as appropriate & no additional complaints except as documented Constitutional Constitutional: Reports system reviewed and no additional complaints, except as documented and Reports as per HPI ENT Ears, Nose, Mouth, and Throat: Reports system reviewed and no additional complaints, except as documented and Reports as per HPI Cardiovascular Cardiovascular: Reports system reviewed and no additional complaints, except as documented, Reports as per HPI, Denies chest pain and Denies edema Respiratory Respiratory: Reports system reviewed and no additional complaints, except as documented, Reports as per HPI, Denies shortness of breath, Denies chest congestion and Denies cough Gastrointestinal Gastrointestingal: Reports system reviewed and no additional complaints, except as documented and as per HPI Genitourinary Female Genitourinary: Reports system reviewed and no additional complaints, except as documented and Reports as per HPI Musculoskeletal Musculoskeletal: Reports system reviewed and no additional complaints, except as documented, Reports as per HPI and Reports other Comments: reports pain in right clavicle area 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 reports pain with palpation and movement, denies falling, no obvious deformity, no bruising noted Respiratory Respiratory exam: Present normal lung sounds bilaterally; Absent respiratory distress or wheezes Cardiovascular Cardiovascular exam: Present regular rate, normal rhythm and normal heart sounds Neurological Exam Neurological exam: Present alert, oriented X3 and normal gait Medical Decision Making Mehrdad Inquiry Pt receiving controlled substance: No Mehrdad was queried for this patient: No Vital Signs: 11/27/23 11:35 Temperature 97.8 F Temperature Source Oral Pulse Rate [Left Brachial] 69 Respiratory Rate 18 Blood Pressure [Left Arm] 108/72 L Blood Pressure Mean [Left Arm] 84 Blood Pressure Source [Left Arm] Automatic Cuff Blood Pressure Position [Left Arm] Sitting 02 Sat by Pulse Oximetry 97 Oxygen Delivery Method Room Air Orders (Tests/Meds): ORDERS Category Date Time Status Clavicle XR right [XR clavicle RT] Stat Exams 11/27/23 11:47 Taken Radiology Data #1: Image(s): Clavicle
[2023-11-27 12:45] VITALS: BP 108/72; PULSE 69; RESP 18; TEMP 36.6; O2SAT 97
== END 2023-11-27 12:50 | disposition home or self-care (01) ==
PROVIDERS: Emergency Provider Nurse Practitioner; PCP Internal Medicine Adolescent Medicine
DX: M25.511 Pain in right shoulder (principal); X50.0XXA Overexertion from strenuous movement or load, initial encounter; F17.290 Nicotine dependence, other tobacco product, uncomplicated
CPT/HCPCS: 73000; 99212; 99213; G0463